=== PATIENT | male | born 1960 | race Caucasian/White ===

== ENCOUNTER 2023-04-18 08:01 | Inpatient (IN) | payer MEDICARE, SELFPAY ==
[2023-04-18] VITALS (15 sets, daily range): BP systolic 148–178; BP diastolic 86–110; PULSE 79–111; RESP 18–26; TEMP 36.3–36.5; O2SAT 93–97; BMI 30.4
--- NOTE | 2023-04-18 08:06 | DI.CT.S_ITS ---
PROCEDURE: CT STROKE INDICATIONS: right sided weakness hx of cva TECHNIQUE: Noncontrast 4.5 mm thick angled axial sections acquired from the foramen magnum to the vertex, with coronal reformats. For radiation dose reduction, the following was used: automated exposure control, adjustment of mA and/or kV according to patient size. COMPARISON: [facility], MR, MR BRAIN WITHOUT CONTRAST, 04/03/2020, 7:48. [facility], CT, CT HEAD WITHOUT CONTRAST, 04/02/2020, 15:24. [facility], CT, CT ANGIO HEAD AND NECK, 04/18/2023, 7:55. FINDINGS: Image quality: Excellent. CSF spaces: Basal cisterns are patent. No extra-axial fluid collections. Ventricles are normal in size and shape. Brain: No midline shift. No intracranial masses or hemorrhage. Sheikh-white matter interface is normal. Ill-defined low-attenuation within the karina corresponding to area of previous infarction. Skull and face: Calvarium and visualized facial bones are intact, without suspicious lesions. Sinuses: Visualized sinuses and mastoids are clear. IMPRESSION: 1. No acute intracranial process. The above findings were discussed with Dr. Angela Blake on 04/18/2023 at 8:19 a.m. This study fulfills neurological imaging criteria for inclusion or exclusion of acute stroke therapies based on available published neurological imaging guidelines. Dictated by: Yeny Horner M.D. on 04/18/2023 at 8:19 Approved by: Yeny Horner M.D. on 04/18/2023 at 8:22
--- NOTE | 2023-04-18 08:06 | DI.CT.S_ITS ---
PROCEDURE: CT ANGIO HEAD AND NECK INDICATIONS: stroke right side weakness TECHNIQUE: After the administration of intravenous contrast, 1 mm thick sections acquired from the aortic arch through the [place] of [place]. 3-dimensional rjlqgvx-tkhwrlaao-diwqcyghmx (MIP) and/or volume rendering reformats were acquired of the central intracranial vasculature and neck separately. For radiation dose reduction, the following was used: automated exposure control, adjustment of mA and/or kV according to patient size. COMPARISON: [facility], CT, CT STROKE, 04/18/2023, 7:55. [facility], MR, MR BRAIN WITHOUT CONTRAST, 04/03/2020, 7:48. [facility], CT, CT ANGIO HEAD AND NECK, 04/02/2020, 22:06. [facility], CT, CT HEAD WITHOUT CONTRAST, 04/02/2020, 15:24. CT, CT ANGIO HEAD AND NECK, 12/22/2018, 13:26. MR, MR BRAIN WITHOUT CONTRAST, 12/22/2018, 11:34. [facility], CT, CT HEAD WITHOUT CONTRAST, 12/22/2018, 10:53. FINDINGS: Image quality: Diagnostic. BRAIN: Please see separately dictated CT brain report. HEAD CT ANGIOGRAPHY: Anterior circulation: Intracranial internal carotid arteries are normal in size and flow. The flow within the paired anterior cerebral arteries is normal and symmetric. The flow within the middle cerebral arteries is normal and symmetric. The anterior communicating artery is seen. No aneurysms are seen. Posterior circulation: Mild left vertebral artery dominance. Visualized portions of the vertebral arteries demonstrate normal caliber, and join to form a normal appearing basilar artery. Flow within the posterior cerebral arteries is normal and symmetric. No aneurysms are seen. NECK CT ANGIOGRAPHY: Carotid system: The great vessels demonstrate bovine arch consistent with congenital variation. The origins of the common carotid arteries appear patent. The common carotid arteries demonstrate normal caliber and courses. The bifurcation regions are both widely patent. The internal carotid arteries demonstrate calcification at the origins with less than 50% stenosis, unchanged. Posterior circulation: The origins of the vertebral arteries both appear widely patent. The more superior extracranial portions of both vertebral arteries also demonstrate normal courses and calibers. They join to form a normal appearing basilar artery. Soft tissues: Visualized neck soft tissues demonstrate no suspicious abnormalities. Bones: No suspicious bony lesions. Visualized cervical spine appears normally aligned. IMPRESSION: See separately dictated CT brain report of 04/18/2023. No areas of hemodynamically significant stenosis, vascular occlusion or aneurysmal dilation within the anterior circulation. No areas of hemodynamically significant stenosis, vascular occlusion or aneurysmal dilation within the posterior circulation. No areas of hemodynamically significant stenosis, vascular occlusion or aneurysmal dilation within the neck vasculature. Any quantitative measurements of stenosis were performed using NASCET criteria. Dictated by: Yeny Horner M.D. on 04/18/2023 at 8:26 Approved by: Yeny Horner M.D. on 04/18/2023 at 8:29
--- NOTE | 2023-04-18 08:19 | ED_ITS ---
HPI - Neuro Symptoms/Deficit General Chief Complaint: Neuro Symptoms/Deficit Stated Complaint: Stroke Time Seen by Provider: 04/18/23 08:06 History of Present Illness HPI Narrative: Patient is a 62-year-old male history of insulin-dependent diabetes, CVA in 2019 with right-sided weakness is improved presenting today as a code stroke. He actually reports that he had slurring of speech yesterday which was new for him, it wax and waned. He was up to 230 this morning watching movies and felt okay. did not notice significant difference yesterday. He got up to use the restroom when he did not feel well. He then sat on the couch and felt like falls of his legs were weak. He finally was able to get up and back but generally did not feel good. 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 Patient admits to being noncompliant with medication but does take insulin. Related Data Home Medications Medication Instructions Recorded Confirmed atorvastatin 40 mg tablet 40 mg PO DAILY 04/18/23 04/18/23 clopidogrel 75 mg tablet 75 mg PO DAILY 04/18/23 04/18/23 insulin glargine 100 unit/mL (3 25 unit SUBCUT BID 04/18/23 04/18/23 mL) subcutaneous pen (Lantus Solostar U-100 Insulin) losartan 50 mg tablet 50 mg PO DAILY 04/18/23 04/18/23 metoprolol succinate 50 mg 50 mg PO BID 04/18/23 04/18/23 tablet,extended release 24 hr Review of Systems Review of Systems ROS Unobtainable: All systems reviewed & are unremarkable except as noted in HPI and below Patient History Medical History (Updated 04/18/23 @ 16:57 by Thuan Vazquez DO) CVA (cerebral vascular accident) HLD (hyperlipidemia) HTN (hypertension) Type 2 diabetes mellitus Social History household members: spouse and children Smoking Status: Current every day smoker alcohol intake: never substance use type: does not use Exam Initial Vital Signs Initial Vital Signs: Vital Signs Temperature 97.7 F 04/18/23 08:07 Pulse Rate 86 04/18/23 08:07 Respiratory Rate 18 04/18/23 08:07 Blood Pressure 172/86 H 04/18/23 08:07 Pulse Oximetry 93 04/18/23 08:07 Oxygen Delivery Method Room Air 04/18/23 08:07 GENERAL: Or pleasant 62-year-old male and in no acute distress. HEENT: Head atraumatic,EOMI, pupils reactive, face symmetric, moist mucous membranes CARDIOVASCULAR: Regular rate and rhythm without murmurs, rubs or gallops. RESPIRATORY: Breath sounds equal bilaterally, no wheezes rales or rhonchi. ABDOMEN: Soft, nontender. Normoactive bowel sounds all 4 quadrants. No guarding or rebound. EXTREMITIES: Normal range of motion, no clubbing or edema. Neurovascularly intact NEUROLOGICAL: Alert and oriented x4.Normal gait and speech. Cranial nerves II through XII grossly intact. Good vvyxsp-ho-pwpg, good cmsh-vy-yttk, strength equal bilaterally, no mild dysarthria noted or aphasia, sensation in tact to soft touch bilaterally, no visual changes, no facial droop SKIN: Warm, dry, no laceration, no petechiae, no rashes or lesions. Scores NIH Stroke Scale Level of Conciousness: Alert, keenly responsive Ask month/age: Answers both questions correctly. Open/close eyes, close hand: Performs both tasks correctly Best gaze horizontal: Normal Visual cyr: No visual loss Facial palsy: Normal symetrical movement Left arm drift: No drift for full 10 sec Right arm drift: No drift for full 10 sec Left leg drift: No drift for full 5 sec Right leg drift: No drift for full 5 sec Limb ataxia: Absent Sensory on face/arms/legs: Normal, no sensory loss Best language: No aphasia, normal Dysarthria: Mild to mod,some slurring Extinction or inattention: No abnormality Total NIH Stroke scale score: 1 Course Orders Ordered: ED Orders 04/18/23 11:11 Urinalysis and Microscopic Stat Acetaminophen (Acetaminophen 325 Mg Tablet) 650 mg PO Q6H PRN PRN Reason: Fever/Mild Pain (1-3) Aspirin (Aspirin Ec 81 Mg Tablet) 81 mg PO DAILY [facility] Atorvastatin Calcium (Atorvastatin 20 Mg Tablet) 40 mg PO DAILY [facility] Clopidogrel Bisulfate (Clopidogrel 75 Mg Tablet) 75 mg PO DAILY [facility] Enoxaparin Sodium (Enoxaparin 40 Mg/0.4 Ml Syringe) 40 mg SUBCUT DAILY [facility] Insulin Glargine (Insulin Glargine 100 Unit/Ml 3ml Pen) 25 unit SUBCUT BID [facility] Insulin Human Lispro (Insulin Lispro 100 Unit/Ml 3ml Vial) 4 unit SUBCUT AC [facility] Last Admin: 04/18/23 17:30 Dose: 4 unit Documented By: ARIEL Co-signed By: LINO Insulin Human Lispro (Insulin Lispro 100 Unit/Ml 3ml Vial) 0 unit SUBCUT [facility]; Protocol Losartan Potassium (Losartan 50 Mg Tablet) 50 mg PO DAILY [facility] Metoprolol Succinate (Metoprolol Er 50 Mg Tablet) 50 mg PO BID [facility] Naloxone HCl (Naloxone 0.4 Mg/Ml Vial) 0.2 mg IV Q2MIN PRN PRN Reason: Opiate Reversal Ondansetron HCl (Ondansetron 4 Mg/2 Ml Inj) 4 mg IV Q8HR PRN PRN Reason: Nausea And Vomiting Discontinued Medications Aspirin (Aspirin 81 Mg Chew Tab) 324 mg PO NOW ONE Stop: 04/18/23 08:25 Last Admin: 04/18/23 08:26 Dose: 324 mg Documented By: BRINA Clopidogrel Bisulfate (Clopidogrel 75 Mg Tablet) 300 mg PO NOW ONE Stop: 04/18/23 16:47 Last Admin: 04/18/23 17:00 Dose: 300 mg Documented By: ARIEL Dextrose (Dextrose 50 % In Water 25 Gm/50 Ml Syringe) 25 gm IV PRN PRN PRN Reason: Hypoglycemia Insulin Glargine (Insulin Glargine 100 Unit/Ml 3ml Pen) 15 unit SUBCUT 2100 [facility] Insulin Human Lispro (Insulin Lispro 100 Unit/Ml 3ml Vial) 0 unit SUBCUT [facility]; Protocol Insulin Human Lispro (Insulin Lispro 100 Unit/Ml 3ml Vial) 1 unit SUBCUT AC [facility] Last Admin: 04/18/23 17:00 Dose: Not Given Documented By: Admin: 04/18/23 13:08 Dose: Not Given Documented By: ARIEL MDM - Neuro Symptoms/Deficit Lab Data 04/18/23 08:00 04/18/23 08:00 Labs: Lab Results 04/18/23 04/18/23 04/18/23 Range/Units 08:00 08:00 08:00 WBC 10.0 (4.5-11.0) X10^3/uL RBC 5.25 (4.5-5.9) X10^6/uL Hgb 15.2 (13.5-17.5) g/dL Hct 45.1 (41-53) % MCV 86.0 (80-100) fL MCH 29.0 (26-34) PG MCHC 33.7 (30-36) % RDW 14.6 (11.6-14.8) % Plt Count 232 (150-400) X10^3/uL Neut % (Auto) 50.4 (50-75) % Lymph % (Auto) 37.3 (25-40) % [place] % (Auto) 11.2 (3-14) % Eos % (Auto) 0.6 L (2-4) % Baso % (Auto) 0.5 (0-2) % Neut # (Auto) 5000 (5675-2024) /uL Lymph # (Auto) 3700 (2205-5736) /uL [place] # (Auto) 1100 H (0-900) /uL Eos # (Auto) 100 (0-450) /uL Baso # (Auto) 0 (0-100) /uL PT 10.3 (10.1-12.7) SECONDS INR 0.9 (0.9-1.3) APTT 28 (26-36) SECONDS Sodium 139 (137-145) mmol/L Potassium 3.6 (3.4-5.1) mmol/L Chloride 101 (98-107) mmol/L Carbon Dioxide 29 (22-32) mmol/L BUN 12 (9-20) mg/dL Creatinine 0.91 (0.66-1.25) mg/dL Estimated GFR > 60 (>60) mL/min BUN/Creatinine Ratio 13.2 (6-22) Glucose 107 (80-110) mg/dL Calcium 9.4 (8.4-10.2) mg/dL Total Bilirubin 0.6 (0.2-1.3) mg/dL AST 25 (17-59) IU/L ALT 18 (<50) IU/L Alkaline Phosphatase 63 (38-126) U/L Total Creatine Kinase 154 (55-170) U/L Troponin I < 0.012 (0.01-0.034) ng/mL Total Protein 7.3 (6.3-8.2) g/dL Albumin 3.9 (3.5-5.0) g/dL Globulin 3.4 (1.7-4.1) g/dL Albumin/Globulin Ratio 1.1 (1.0-2.8) Urine RBC (0-5/HPF) Urine WBC (0-5/HPF) Ur Squamous Epith Cells (0-5/HPF) Urine Bacteria (None) U Opiates 300ng/mL cut (Negative) Ur Oxycodone Screen (Negative) Urine Methadone Screen (Negative) Ur Barbiturates Screen (Negative) U Tricyclic Antidepress (Negative) Ur Phencyclidine Scrn (Negative) Ur Amphetamines Screen (Negative) U Methamphetamines Scrn (Negative) Ur MDMA Scrn (Ecstasy) (Negative) U Benzodiazepines Scrn (Negative) Urine Cocaine Screen (Negative) U Marijuana (THC) Screen (Negative) Ethyl Alcohol < 10 ( - 10) mg/dL SARS-CoV-2 (PCR) (Negative) 04/18/23 04/18/23 04/18/23 Range/Units 08:07 08:50 09:30 WBC (4.5-11.0) X10^3/uL RBC (4.5-5.9) X10^6/uL Hgb (13.5-17.5) g/dL Hct (41-53) % MCV (80-100) fL MCH (26-34) PG MCHC (30-36) % RDW (11.6-14.8) % Plt Count (150-400) X10^3/uL Neut % (Auto) (50-75) % Lymph % (Auto) (25-40) % [place] % (Auto) (3-14) % Eos % (Auto) (2-4) % Baso % (Auto) (0-2) % Neut # (Auto) (6906-8558) /uL Lymph # (Auto) (8219-5285) /uL [place] # (Auto) (0-900) /uL Eos # (Auto) (0-450) /uL Baso # (Auto) (0-100) /uL PT (10.1-12.7) SECONDS INR (0.9-1.3) APTT (26-36) SECONDS Sodium (137-145) mmol/L Potassium (3.4-5.1) mmol/L Chloride (98-107) mmol/L Carbon Dioxide (22-32) mmol/L BUN (9-20) mg/dL Creatinine (0.66-1.25) mg/dL Estimated GFR (>60) mL/min BUN/Creatinine Ratio (6-22) Glucose (80-110) mg/dL Calcium (8.4-10.2) mg/dL Total Bilirubin (0.2-1.3) mg/dL AST (17-59) IU/L ALT (<50) IU/L Alkaline Phosphatase (38-126) U/L Total Creatine Kinase (55-170) U/L Troponin I (0.01-0.034) ng/mL Total Protein (6.3-8.2) g/dL Albumin (3.5-5.0) g/dL Globulin (1.7-4.1) g/dL Albumin/Globulin Ratio (1.0-2.8) Urine RBC None seen (0-5/HPF) Urine WBC None seen (0-5/HPF) Ur Squamous Epith Cells None seen (0-5/HPF) Urine Bacteria None seen (None) U Opiates 300ng/mL cut Negative (Negative) Ur Oxycodone Screen Negative (Negative) Urine Methadone Screen Negative (Negative) Ur Barbiturates Screen Negative (Negative) U Tricyclic Antidepress Negative (Negative) Ur Phencyclidine Scrn Negative (Negative) Ur Amphetamines Screen Negative (Negative) U Methamphetamines Scrn Negative (Negative) Ur MDMA Scrn (Ecstasy) Negative (Negative) U Benzodiazepines Scrn Negative (Negative) Urine Cocaine Screen Negative (Negative) U Marijuana (THC) Screen Negative (Negative) Ethyl Alcohol ( - 10) mg/dL SARS-CoV-2 (PCR) Negative (Negative) Point of Care Testing Glucose POC 102 Urine Dip Bedside Urine Glucose Negative Bedside Urine Bilirubin - Negative Bedside Urine Ketone - Negative Urine Specific [place] 1.000 Bedside Urine Occult Blood - Negative Bedside Urine pH 6.5 Bedside Urine Protein + 30 Bedside Urine Urobilinogen +/- 1mg Bedside Urine Nitrite - Negative Bedside Urine Leukocytes - Negative Esterase Imaging Data CT scan - head: Radiologist's Impression: PROCEDURE:? CT STROKE ? INDICATIONS:? right sided weakness hx of cva ? TECHNIQUE:? Noncontrast 4.5 mm thick angled axial sections acquired from the foramen magnum to the vertex, with coronal reformats.? For radiation dose reduction, the following was used:? automated exposure control, adjustment of mA and/or kV according to patient size.? ? COMPARISON:? [facility], MR, MR BRAIN WITHOUT CONTRAST, 04/03/2020, 7:48.? [facility], CT, CT HEAD WITHOUT CONTRAST, 04/02/2020, 15:24.? [facility], CT, CT ANGIO HEAD AND NECK, 04/18/2023, 7:55. ? FINDINGS:? Image quality:? Excellent.? ? CSF spaces:? Basal cisterns are patent.? No extra-axial fluid collections.? Ventricles are normal in size and shape.? ? Brain:? No midline shift.? No intracranial masses or hemorrhage.? Sheikh-white matter interface is normal.? Ill-defined low-attenuation within the karina corresponding to area of previous infarction. ? Skull and face:? Calvarium and visualized facial bones are intact, without suspicious lesions.? ? Sinuses:? Visualized sinuses and mastoids are clear.? ? IMPRESSION:? ? 1. No acute intracranial process. ? The above findings were discussed with Dr. Angela Blake on 04/18/2023 at 8:19 a.m. ? This study fulfills neurological imaging criteria for inclusion or exclusion of acute stroke therapies based on available published neurological imaging guidelines.? ? ? Dictated by: Yeny Horner M.D. on 04/18/2023 at 8:1 CTA - brain/neck: Radiologist's Impression: PROCEDURE:? CT ANGIO HEAD AND NECK ? INDICATIONS:? stroke right side weakness ? TECHNIQUE:? After the administration of intravenous contrast, 1 mm thick sections acquired from the aortic arch through the [place] of [place].? 3-dimensional lvymiih-hoybvoyde-trtshrguex (MIP) and/or volume rendering reformats were acquired of the central intracranial vasculature and neck separately. For radiation dose reduction, the following was used:? automated exposure control, adjustment of mA and/or kV according to patient size.? ? COMPARISON:? [facility], CT, CT STROKE, 04/18/2023, 7:55.? [facility], MR, MR BRAIN WITHOUT CONTRAST, 04/03/2020, 7:48.? [facility], CT, CT ANGIO HEAD AND NECK, 04/02/2020, 22:06.? [facility], CT, CT HEAD WITHOUT CONTRAST, 04/02/2020, 15:24.? CT, CT ANGIO HEAD AND NECK, 12/22/2018, 13:26.? MR, MR BRAIN WITHOUT CONTRAST, 12/22/2018, 11:34.? [facility], CT, CT HEAD WITHOUT CONTRAST, 12/22/2018, 10:53. ? FINDINGS:? Image quality:? Diagnostic.? ? BRAIN:? Please see separately dictated CT brain report. ? HEAD CT ANGIOGRAPHY:? Anterior circulation:? Intracranial internal carotid arteries are normal in size and flow.? The flow within the paired anterior cerebral arteries is normal and symmetric.? The flow within the middle cerebral arteries is normal and symmetric.? The anterior communicating artery is seen.? No aneurysms are seen.? ? Posterior circulation:? Mild left vertebral artery dominance.? Visualized portions of the vertebral arteries demonstrate normal caliber, and join to form a normal appearing basilar artery.? Flow within the posterior cerebral arteries is normal and symmetric.? No aneurysms are seen.? ? NECK CT ANGIOGRAPHY:? Carotid system:? The great vessels demonstrate bovine arch consistent with congenital variation.? The origins of the common carotid arteries appear patent.? The common carotid arteries demonstrate normal caliber and courses.? The bifurcation regions are both widely patent.? The internal carotid arteries demonstrate calcification at the origins with less than 50% stenosis, unchanged. ? Posterior circulation:? The origins of the vertebral arteries both appear widely patent.? The more superior extracranial portions of both vertebral arteries also demonstrate normal courses and calibers.? They join to form a normal appearing basilar artery.? ? Soft tissues:? Visualized neck soft tissues demonstrate no suspicious abnormalities.? ? Bones:? No suspicious bony lesions.? Visualized cervical spine appears normally aligned.? IMPRESSION:? ? See separately dictated CT brain report of 04/18/2023. ? No areas of hemodynamically significant stenosis, vascular occlusion or aneurysmal dilation within the anterior circulation. ? No areas of hemodynamically significant stenosis, vascular occlusion or a neurysmal dilation within the posterior circulation. ? No areas of hemodynamically significant stenosis, vascular occlusion or aneurysmal dilation within the neck vasculature. ? Any quantitative measurements of stenosis were performed using NASCET criteria.? ? ? Dictated by: Yeny Horner M.D. on 04/18/2023 at 8:26 ECG Data Interpretation: Sinus rhythm rate 88 AK interval 152 QRS 88 QTC 433 Q-wave noted in lead 3 and AVF no priors to compare no ST changes MDM Narrative Medical decision making narrative: Patient 62-year-old male history of insulin-dependent diabetes hypertension noncompliant with medication presenting today as a code stroke. Although after further evaluation patient has had slurring speech since yesterday he has a low NIH stroke scale of 1 symptoms seem to be improving not a tPA candidate based on time greater than 4 hours and improving symptoms. Sarah Perry called about head CT which is negative for intracranial hemorrhage CT angio did not show any significant blockage. He continues to have slurring of speech in the ED Blood work has been reviewed and overall reassuring Dr. Vazquez accepts patient #[id number]: Stroke & Stroke Rehabilitation: Thrombolytic Therapy [] The patient, who arrived at the hospital within 2 hours of time last known well, was diagnosed with subacute or acute ischemic stroke. IV t-PA was initiated within 3 hours of time last known well. [SATISFIES MIPS PERFORMANCE] [] The patient was diagnosed with subacute or acute ischemic stroke. IV t-PA was not initiated within 3 hours of last known well due to [select]: [MIPS PERFORMANCE EXCEPTION/EXCLUSION] X Patient arrived more than 2 hours after last known well time, or the time last known well is unknown [] Patient has a medical contra-indication or reason for not administering [] (ex. neurologist does not believe t-PA is appropriate, active internal bleeding, serious head trauma, acute current or history of intracranial hemorrhage, uncontrollable hypertension, seizure at onset of stroke, CVA in last 3 months, Intracranial or intraspinal surgery in last 3 months, bleeding disorder, thrombocytopenia < 100,000, early radiographic ischemic changes on head CT, INR > 1.7, intracranial neoplasm, AVM, or aneurysm, patient in stroke trial, patient admitted for elective carotid intervention) []Patient or family declined IV t-PA [] The patient, who arrived at the hospital within 2 hours of time last known well, was diagnosed with subacute or acute ischemic stroke. IV t-PA was not initiated within 3 hours of time last known well. [DOES NOT SATISFY MIPS PERFORMANCE] Discharge Plan Departure Patient Disposition: Admitted as Observation Clinical Impression: Cerebrovascular accident Admit Date/Time: 04/18/23 10:45 Admit Provider: Thuan Vazquez
[2023-04-18 08:26] LABS: Add Manual Diff / Slide Review NO; Basophils Absolute Auto 0 /uL (0-100); Basophils Percent Auto 0.5 % (0-2); Eosinophils Absolute Auto 100 /uL (0-450); Eosinophils Percent Auto 0.6 % (2-4); Hematocrit 45.1 % (41-53); Hemoglobin 15.2 g/dL (13.5-17.5); Lymphocytes Absolute Auto 3700 /uL (1100-4500); Lymphocytes Percent Auto 37.3 % (25-40); Mean Corpuscular HGB Conc 33.7 % (30-36); Monocytes Absolute Auto 1100 /uL (0-900); Monocytes Percent Auto 11.2 % (3-14); Neutrophils Absolute Auto 5000 /uL (1500-7000); Neutrophils Percent Auto 50.4 % (50-75); Platelet Count 232 X10^3/uL (150-400); Red Blood Cell Count 5.25 X10^6/uL (4.5-5.9); Red Cell Distribution Width 14.6 % (11.6-14.8)
[2023-04-18] MEDS: ASPIRIN 81 MG CHEW TAB 324 MG PO (08:26)
[2023-04-18 08:27] LABS: INR 0.9 (0.9-1.3); Prothrombin Time 10.3 SECONDS (10.1-12.7)
[2023-04-18 08:31] LABS: PTT Partial Thromboplastin Tim 28 SECONDS (26-36)
[2023-04-18 08:34] LABS: Alanine Aminotransferase 18 IU/L (<50); Albumin 3.9 g/dL (3.5-5.0); Albumin Globulin Ratio 1.1 (1.0-2.8); Alkaline Phosphatase 63 U/L (38-126); Aspartate Aminotransferase 25 IU/L (17-59); BUN Creatinine Ratio 13.2 (6-22); Bilirubin Total 0.6 mg/dL (0.2-1.3); Blood Urea Nitrogen 12 mg/dL (9-20); Calcium 9.4 mg/dL (8.4-10.2); Carbon Dioxide 29 mmol/L (22-32); Chloride 101 mmol/L (98-107); Creatine Kinase 154 U/L (55-170); Estimated Glomerular Filt Rate > 60 mL/min (>60); Ethanol (ETOH) < 10 mg/dL; Globulin 3.4 g/dL (1.7-4.1); Glucose 107 mg/dL (80-110); HEMOLYSIS < 15 (0-50); Potassium 3.6 mmol/L (3.4-5.1); Sodium 139 mmol/L (137-145); Total Protein 7.3 g/dL (6.3-8.2)
[2023-04-18 08:45] LABS: Troponin I < 0.012 ng/mL (0.01-0.034)
[2023-04-18 09:23] LABS: COVID19 -Nasal RAPID Negative (Negative)
[2023-04-18 09:36] LABS: UR Morphine/Opiate cutoff 300 Negative (Negative); Ur Creatinine Normal (Normal); Ur Specific Gravity Normal (Normal); Urine Amphetamines Negative (Negative); Urine Barbiturates Negative (Negative); Urine Benzodiazepines Negative (Negative); Urine Cocaine Negative (Negative); Urine MDMA Negative (Negative); Urine Methadone Negative (Negative); Urine Methamphetamines Negative (Negative); Urine Oxycodone Negative (Negative); Urine Phencyclidine Negative (Negative); Urine Tetrahydrocannabinol Negative (Negative); Urine Tricyclic Antidepressant Negative (Negative); Urine pH Normal (Normal)
[2023-04-18 09:54] LABS: Bacteria Urine None Seen; RBC Urine None Seen (0-5/HPF); Squamous Epithelial Cell Urine None Seen (0-5/HPF); WBC Urine None Seen (0-5/HPF)
[2023-04-18 11:20] LABS: Appearance Urine UA CLEAR; Bilirubin Urine UA NEGATIVE (NEGATIVE); Color Urine UA YELLOW; Glucose Urine UA NEGATIVE (Negative); Ketones Urine UA NEGATIVE (NEGATIVE); Leukocyte Esterase Urine UA NEGATIVE (NEGATIVE); Nitrite Urine UA NEGATIVE (Negative); Occult Blood Urine UA TRACE-INTACT (Negative); Protein Urine UA 2+ (Negative); pH Urine UA 5.5 (4.5-8.0)
--- NOTE | 2023-04-18 11:22 | P.HP_ITS ---
History of Present Illness History of Present Illness Date Patient Seen: 04/18/23 Time Patient Seen: 11:22 Chief complaint: Stroke Narrative: This is a 62 year old male with PMH of HTN, prior CVA (at [facility] in 2019), diabetes who presented with complaint of slurred speech. He reports his symptoms started yesterday evening but came and went. He was up watching television but noticed around 3 am it was a bit worse when he got up to use the restroom. He felt weak and off, and had back down when his legs felt weak. He was able to get back to sleep, and woke this morning with slurred speech and some R hand weakness. He denies numbness or tingling, vision changes. He has felt congested recently but no fever, sore throat, or sick contacts. He is supposed to be on clopidogrel from his prior stroke but has not been taking it recently. In the emergency room he was mildly hypertensive but the remainder of his vital signs were unremarkable. Laboratory evaluation was further unremarkable including basic chemistries, troponin, and urinalysis. Urine drug screen was negative. COVID-19 testing was negative. Initial head CT was negative for hemorrhage. CT angiogram of his head and neck showed no clinically significant stenosis. He was admitted for further management of presumed stroke. Given unclear last known normal, he was ineligible for tPA therapy. [facility] Medical History (Updated 04/18/23 @ 16:57 by Thuan Vazquez DO) CVA (cerebral vascular accident) HLD (hyperlipidemia) HTN (hypertension) Type 2 diabetes mellitus Social History household members: spouse and children Smoking Status: Current every day smoker alcohol intake: never substance use type: does not use Meds Home Medications and Allergies Home Medications Medication Instructions Recorded Confirmed Type atorvastatin 40 mg tablet 40 mg PO DAILY 04/18/23 04/18/23 History clopidogrel 75 mg tablet 75 mg PO DAILY 04/18/23 04/18/23 History insulin glargine 100 unit/mL (3 25 unit SUBCUT BID 04/18/23 04/18/23 History mL) subcutaneous pen (Lantus Solostar U-100 Insulin) losartan 50 mg tablet 50 mg PO DAILY 04/18/23 04/18/23 History metoprolol succinate 50 mg 50 mg PO BID 04/18/23 04/18/23 History tablet,extended release 24 hr Review of Systems Review of Systems Narrative: All other systems reviewed with the patient and are negative unless otherwise stated. Exam Vital Signs (past 8 hours): - 04/18/23 08:07 04/18/23 08:45 04/18/23 08:46 Temperature 97.7 F Pulse Rate 86 86 87 Respiratory Rate 18 24 19 Blood Pressure 172/86 H Pulse Oximetry 93 93 93 Oxygen Delivery Method Room Air 04/18/23 08:46 04/18/23 09:00 04/18/23 09:30 Temperature Pulse Rate 84 83 Respiratory Rate 19 19 Blood Pressure 155/86 H Pulse Oximetry 94 94 Oxygen Delivery Method 04/18/23 10:00 04/18/23 10:30 04/18/23 11:00 Temperature Pulse Rate 80 80 79 Respiratory Rate 24 21 26 H Blood Pressure Pulse Oximetry 94 95 95 Oxygen Delivery Method 04/18/23 11:09 04/18/23 11:09 Temperature Pulse Rate 79 Respiratory Rate 23 Blood Pressure 154/92 H Pulse Oximetry 95 Oxygen Delivery Method Oxygen Delivery Method Room Air Narrative Exam Narrative: General:? Patient is well developed and well nourished, in no distress at this time. HEENT:? Normocephalic, atraumatic, extraocular muscles intact, oral pharynx is clear and mucous membranes are moist. Neck: supple and symmetric, trachea is midline, no cervical adenopathy. Negative for JVD Chest:? Normal AP diameter and contour without kyphoscoliosis, no tachypnea, equal chest rise bilaterally. Lungs:? CTA b/l no wheezing rhonchi or rales. Cardio:?RRR no m/r/g. Abdomen: S NT ND. Musculoskeletal:? Muscle strength and tone are equal within normal limits, no deformity. Extremities: No edema or joint effusions. No cyanosis or clubbing. Skin:? Pale,? Warm to touch,dry and intact without rashes, ulcerations or petechiae.? Neuro:? Alert and orientated x3,?slight R facial asymmetry with smiling, slurred speech compared to baseline. R hand weakness compared to L (he is R handed) but +5/5 strength. Psych:? Patient has a well-kept appearance, appropriate affect, mental status attitude thought context and judgment are appropriate for age. Objective ECG Impression: NSR with no evidence for acute ischemia. As interpreted by me. Labs 04/18/23 08:00 04/18/23 08:00 Labs: Laboratory Results - last 24 hr 04/18/23 04/18/23 04/18/23 08:00 08:00 08:00 WBC 10.0 RBC 5.25 Hgb 15.2 Hct 45.1 MCV 86.0 MCH 29.0 MCHC 33.7 RDW 14.6 Plt Count 232 Neut % (Auto) 50.4 Lymph % (Auto) 37.3 [place] % (Auto) 11.2 Eos % (Auto) 0.6 L Baso % (Auto) 0.5 Neut # (Auto) 5000 Lymph # (Auto) 3700 [place] # (Auto) 1100 H Eos # (Auto) 100 Baso # (Auto) 0 PT 10.3 INR 0.9 APTT 28 Sodium 139 Potassium 3.6 Chloride 101 Carbon Dioxide 29 BUN 12 Creatinine 0.91 Estimated GFR > 60 BUN/Creatinine Ratio 13.2 Glucose 107 Calcium 9.4 Total Bilirubin 0.6 AST 25 ALT 18 Alkaline Phosphatase 63 Total Creatine Kinase 154 Troponin I < 0.012 Total Protein 7.3 Albumin 3.9 Globulin 3.4 Albumin/Globulin Ratio 1.1 Urine RBC Urine WBC Ur Squamous Epith Cells Urine Bacteria U Opiates 300ng/mL cut Ur Oxycodone Screen Urine Methadone Screen Ur Barbiturates Screen U Tricyclic Antidepress Ur Phencyclidine Scrn Ur Amphetamines Screen U Methamphetamines Scrn Ur MDMA Scrn (Ecstasy) U Benzodiazepines Scrn Urine Cocaine Screen U Marijuana (THC) Screen Ethyl Alcohol < 10 SARS-CoV-2 (PCR) 04/18/23 04/18/23 04/18/23 08:07 08:50 09:30 WBC RBC Hgb Hct MCV MCH MCHC RDW Plt Count Neut % (Auto) Lymph % (Auto) [place] % (Auto) Eos % (Auto) Baso % (Auto) Neut # (Auto) Lymph # (Auto) [place] # (Auto) Eos # (Auto) Baso # (Auto) PT INR APTT Sodium Potassium Chloride Carbon Dioxide BUN Creatinine Estimated GFR BUN/Creatinine Ratio Glucose Calcium Total Bilirubin AST ALT Alkaline Phosphatase Total Creatine Kinase Troponin I Total Protein Albumin Globulin Albumin/Globulin Ratio Urine RBC None seen Urine WBC None seen Ur Squamous Epith Cells None seen Urine Bacteria None seen U Opiates 300ng/mL cut Negative Ur Oxycodone Screen Negative Urine Methadone Screen Negative Ur Barbiturates Screen Negative U Tricyclic Antidepress Negative Ur Phencyclidine Scrn Negative Ur Amphetamines Screen Negative U Methamphetamines Scrn Negative Ur MDMA Scrn (Ecstasy) Negative U Benzodiazepines Scrn Negative Urine Cocaine Screen Negative U Marijuana (THC) Screen Negative Ethyl Alcohol SARS-CoV-2 (PCR) Negative Assessment & Plan Assessment & Plan narrative: 1. CVA - presents with R sided hand weakness, slurred speech. NIH 3 on my assessment. - MRI for further evaluation of probable cva. - tele ordered to monitor for afib - TTE from 2019 at [facility] shows no PFO, normal EF, some mild diastolic dysfunction . No need to repeat given lack of cardiac symptoms. - eval with PT/OT/Speech - will order ASA and Plavix with NIH <5 on presentation. given asa 324 initially, give 300 mg plavix now. - initial permissive htn, with resumption of home medications this evening - continue home statin lipitor 40 mg, check TSH, lipid panel and A1c as well. 2. HTN - continue home losartan and metoprolol 3. DM2 - check A1c, diabetic diet, sliding scale ordered. - continue home 25 U BID lantus along with 4 U TID AC home short acting plus above sliding scale. 4. Obesity The patient is at much higher risk for medical and surgical complications because of their obesity. This increases the difficulty and complexity of medical and surgical interventions and increases the chances of poor outcomes such as morbidity and mortality. Code: Full, surrogate is patient's spouse DVT: Lovenox I have utilized all available immediate resources to obtain, update, or review the patient's current medications. Street was obtained via the patient's spouse, and discussion with the ER provider. I have reviewed the patient's presenting documentation, labs, and imaging personally and order the above follow-up studies. Discussed plan of care with the patient and his spouse. Dispo: admitted inpatient as his stay is expected to exceed two midnights. Scores NIHSS Level of Conciousness: Alert, keenly responsive Ask month/age: Answers both questions correctly. Open/close eyes, close hand: Performs both tasks correctly Best gaze horizontal: Normal Visual cyr: No visual loss Facial palsy: Minor paralysis, flattened nasolabial fold, asymmetry on smiling Left arm drift: No drift for full 10 sec Right arm drift: No drift for full 10 sec Left leg drift: No drift for full 5 sec Right leg drift: No drift for full 5 sec Limb ataxia: Absent Sensory on face/arms/legs: Normal, no sensory loss Best language: Mild to moderate, slurs some words Dysarthria: Mild to mod,some slurring Extinction or inattention: No abnormality Total NIH Stroke scale score: 3 Quality MIPS - Admit I confirm the patient?s Advance Care Plan is present, Code status is documented, Surrogate decision maker is in patient?s record [If Yes, STOP here]: Yes
[2023-04-18 11:31] LABS: Bacteria Urine None Seen; Culture Indicated Urine Cult Not Indicated; RBC Urine None Seen (0-5/HPF); Squamous Epithelial Cell Urine None Seen (0-5/HPF); WBC Urine 0-1/HPF (0-5/HPF)
--- NOTE | 2023-04-18 13:11 | DI.MRI.S_ITS ---
PROCEDURE: MR HEAD/BRAIN WO CON INDICATIONS: R facial droop, slurred speech poss CVA TECHNIQUE: Non-contrast axial T1 spin echo, axial T2 fast spin echo, sagittal and axial FLAIR, coronal T2 fast spin echo, axial gradient echo, axial diffusion and ADC through the brain. COMPARISON: [facility], CT, CT STROKE, 04/18/2023, 7:55. FINDINGS: Image quality: Excellent. CSF spaces: Ventricles appear symmetric in size and shape. Basal cisterns are patent. No extra-axial fluid collections. Brain: No intracranial bleeds or mass effects. There is cerebral volume loss for age. There are periventricular and deep white matter chronic small vessel ischemic changes. Diffusion-weighted images demonstrate a 5 mm focus of elevated signal intensity within the left inferior karina anteriorly. This lesion demonstrates moderate FLAIR signal elevation. No chronic ischemic insults. Normal intravascular flow voids are present. Skull and face: Calvarial bone marrow is normal in signal. Orbits are normal. Sinuses: Sinuses and mastoids are clear. IMPRESSION: 1. Mild volume loss and small vessel ischemic disease. 2. Subacute left pontine infarct. Dictated by: Avtar Romero M.D. on 04/18/2023 at 16:07 Approved by: Avtar Romero M.D. on 04/18/2023 at 16:08
--- NOTE | 2023-04-18 16:45 | PT.IIE ---
Medical History (Last Updated 04/18/23 @ 16:57 by Thuan Vazquez DO) CVA (cerebral vascular accident) HLD (hyperlipidemia) HTN (hypertension) Type 2 diabetes mellitus Physical Therapy Inpatient Evaluation/Re-Eval M1 PT/OT-IP Prior Functional Status Start: 04/18/23 17:49 Freq: NEEDED Status: Active Protocol: Document 04/18/23 17:49 AB (Rec: 04/18/23 18:11 AB [id number]) Medical Review Prior Functional Status Medical History Reviewed Yes Communication Pt is able to express all needs. Mobility and Gait Pt reports he does not use AD for household mobility, but uses 4WW to get the mail. Activities of Daily Living and IADL's IND with ADLs and IADLs Prior Functional Level (Other details) hx of CVA in 2019 which caused right sided weakness, hx of neuropathy and left foot drop (wears brace for foot drop) Social History Household Members spouse,children Living Arrangements House Number of Floors (Floors) One Floor Number of Stairs To Enter/Railing? 3 [place] with hand rail on right side Home Environment Standard Height Toilet,Tub/ Shower Home Equipment Front Wheel Walker,Four Wheel Walker,Quad Cane,Raised Toilet Seat Without Armrests,Grab Bars In Shower Additional Social History Comment Pt reports his and son can assist him / if needed. The pt reports he owns a FWW but has loaned it to a friend currently. M2 PT-IP Current Condition Start: 04/18/23 17:49 Freq: NEEDED Status: Active Protocol: Document 04/18/23 17:49 AB (Rec: 04/18/23 18:11 AB [id number]) Physical Therapy Current Condition Current Condition Evaluation Date 04/18/23 Treatment Diagnosis CVA; right sided weakness Onset Date 04/18/23 M3 PT-IP Subjective Start: 04/18/23 17:49 Freq: NEEDED Status: Active Protocol: Document 04/18/23 17:49 AB (Rec: 04/18/23 18:11 AB [id number]) Subjective Physical Therapy Visit Type Type Initial Evaluation Visit Start Time 16:45 Visit Stop Time 17:07 Total Visit Minutes 22 Notes Pt presents seated at EOB with at bedside, after handoff from GERIATRIC NURSE ASSISTANT. BP taken in sitting before beginning mobility: 167/103 mmHg. Physical Therapy Visit Comments Patient Comments Pt is agreeable to PT eval. He denies having any symptoms currently. Therapy Pain Assessment Pain When Pain Assessed At Rest Pain Present Pain Present Denied Pain M4 PT-IP Mobility and Gait Start: 04/18/23 17:49 Freq: NEEDED Status: Active Protocol: Document 04/18/23 17:49 AB (Rec: 04/18/23 18:11 AB [id number]) PT-Bed Mobility Assessment Rolling Type of Rolling Bilateral Level of Assist Minimal Assistance Supine to Sit Supine to Sit Standby Assistance Sit to Supine Sit to Supine Standby Assistance Scooting Scooting to Edge of Bed Standby Assistance Scooting Up and Down in Bed Standby Assistance PT-Transfer Assessment Sit to and From Stand Sit to and from Stand Standby Assistance,Use of Upper Extremities Equipment Transfer Assistive Device Gait Belt,Front Wheeled Walker Transfers Transfer Destination Bed Transfer Technique Stand Step Pivot Transfer Ability Level of Assist Standby Assistance Gait Assessment Gait Gait Assistance Required: Contact Guard Assist Distance (Feet) 130 Assistive Devices Assistive Device Gait Belt Gait Deviations General Gait Pattern Decreased Stride Length, Decreased Feet Clearance Factors Limiting Gait Function Factors Limiting Gait Function Decreased Activity Tolerance, Decreased Sensation,Poor Balance,Poor Safety Awareness Comments Gait Comments Pt shows increased instability when ambulated, though he is able to self correct. PT recommends use of FWW due to these deficits. Stair Climbing Assessment Evaluation Level of Assist On Stairs Standby Assistance Devices Stair Climbing Assistive Devices Left Railing,Right Railing Technique/Endurance Stair Climbing Direction Ascend and Descend Stair Climbing Technique Step to Step Number of Steps Climbed 3 Query Text: Stair Climbing Set # Repetitions (reps) 1 PT-Balance Assessment Sitting Balance and Reactions Static Sitting Balance Ability Normal Dynamic Sitting Balance Ability Good Standing Balance and Reactions Static Standing Balance Ability Fair Dynamic Standing Balance Ability Poor M5 PT-IP Objective Assessments Start: 04/18/23 17:49 Freq: NEEDED Status: Active Protocol: Document 04/18/23 17:49 AB (Rec: 04/18/23 18:11 AB [id number]) Orientation Orientation/Cognition Level of Alertness Alert Orientation Name,Age,Birthday,Month,Date, Year,Day of Week,Place, Situation Language Function Ability No Deficits Noted Safety Awareness Understands Safety Issues Memory Description No Deficits Noted Comments Pt understand safety issues but reports not being receptive to recommendations in the past, and shows impulsivity when perform functional mobility tasks. Gross Range of Motion Upper Extremity ROM Assessment Within Functional Limits Lower Extremity ROM Assessment Within Functional Limits Strength Upper Extremity Strength Assessment Within Functional Limits Lower Extremity Strength Assessment Bilaterally Impaired Sensation Assessment Sensation Gross Sensation Right LE Impaired,Left LE Impaired Comments Sensation Comments Pt reprots neuropathy in BLE. M6 PT-IP Treatment Start: 04/18/23 17:49 Freq: NEEDED Status: Active Protocol: Document 04/18/23 17:49 AB (Rec: 04/18/23 18:11 AB [id number]) Physical Therapy Treatment Education Education Provided Precautions,Safety Brace Education Patient Other Treatments Other Treatment Performed At end of session, the pt returned to sitting at EOB to eat dinner with at bedside, and was educated on use of call light to return to bed. All needs were met and call light is within reach. M7 PT-IP Assessment and Plan Start: 04/18/23 17:49 Freq: NEEDED Status: Active Protocol: Document 04/18/23 17:49 AB (Rec: 04/18/23 18:11 AB [id number]) PT Summary Assessment and Plan Potential Rehabilitation Potential Good Status of Condition at Evaluation Stable Summary Impairments Strength,Balance,Coordination, Sensation,Bed Mobility, Transfers,Gait,Activity Tolerance Assessment Summary Kenneth Denson is a 62 year old male who was admitted after having suffered subacute left pontine infarct (CVA), which has caused right sided weakness and slurred speech. The pt currently presents with balance deficits and right sided weakness which are affecting his ability to perform functional mobility independently and safely. He currently requires SBA to [place] to perform bed mobility, requires SBA for STS, transfers and stairs, and is CGA for ambulation due to his deficits. While the pt was able to ambulate without AD, he demonstrates significant imbalance and a few instances of mild LOB which the pt was able to self correct. Therefore, FWW is recommended for transfers and ambulation at this time. The pt also shows impulsivity when performing functional mobility tasks, requiring verbal cues to slow down. Based on his current level of function, PT recommends discharge to home with assistance and outpatient PT to help improve these deficits in order to reduce his fall risk and help the pt return to his highest level of function. Goals Bed Mobility Goal Independent Transfer Goal Independent Gait Goal Independent,Cane,Front Wheel Walker Gait Distance 200 Other Goals Pt to be able to complete transfers and ambulation with LRAD or no AD independently to show improved balance in order to return home safely. Pt to be able to ascend/ descend 3 steps with 1 hand rail independently to show improved strength to return home safely. Days to Meet Goals 10 Frequency of Treatment Frequency Of Treatment Once a Day Treatment Plan Physical Therapy Treatment Plan Bed Mobility Training,Transfer Training,Gait Training, Therapeutic Exercise,Balance Retraining,Post Op Education, Discharge Planning,Hot or Cold Pack,Neuromuscular Re-ed, Coordination Retraining,Manual Therapy Other Recommendations and Next Treatment Perform other functional Focus assessments and coordination tests as indicated. Recommendations To Nursing Amount of Assist Needed Standby Assistance Discharge Recommendations PT Discharge Recommendations Home with Assistance, Outpatient PT Other Discharge Recommendations Outpatient PT is recommended to further improve the pt's deficits. Equipment Needed for Home Before FWW Discharge Transportation Needs at Discharge Private Vehicle,Wheelchair/ Cabulance
[2023-04-18] MEDS: CLOPIDOGREL 75 MG TABLET 300 MG PO (17:00)
[2023-04-18] MEDS: INSULIN LISPRO 100 UNIT/ML 3ML VIAL SUBCUT (17:30)
--- NOTE | 2023-04-18 17:32 | ST.IPCSEOM ---
Visit Care Team Role Provider Type Thuan Euceda MD Primary Care Provider Non-Staff Specialty: Family Practice Address: [address] [place] [address], [id number] Email: Angela Blake DO Emergency Provider Physician Referring Provider Specialty: Emergency Medicine Address: [address] [place] [address], [address] Email: [email or web address] Thuan Vazquez DO Admit Provider Physician Attending Provider Specialty: Internal Medicine Address: [address] [place] [address], [facility] Email: [email or web address] Past Medical History (Last Updated 04/18/23 @ 16:57 by Thuan Vazquez DO) CVA (cerebral vascular accident) (Medical) HLD (hyperlipidemia) (Medical) HTN (hypertension) (Medical) Type 2 diabetes mellitus (Medical) Speech-Language Pathology Swallow Evaluation DIRECTOR STUDENT UNION Clinical Swallow Evaluation Start: 04/18/23 16:57 Freq: Status: Active Protocol: Document 04/18/23 16:58 (Rec: 04/18/23 17:31 [id number]) Clinical Swallow Evaluation Session Time Visit Start Time 15:45 Visit Stop Time 16:45 Total Visit Minutes 60 Visit Information Visit Number 1 Referral Referring Provider hospitalist Reason for Referral dysphagia post cva Setting Assessment Location Acute Care Visit Type Note Type Initial evaluation Patient Information Identification Type Name,Date of History 62 y/o man with previous CVA 2018, admitted with slurred speech, and r sided weakness. Referred to ST for difficulty w swallowing for evaluation and tx as appropriate. Reported by Patient/Caregiver Other Symptoms Choking,Coughing,Difficulty swallowing liquids,Difficulty swallowing solids Comment Pt reported regular diet at home, some mild deficts mitigated by eating slower and chewing well. Pt reports even with small bites, that he has increased difficulty with intake, coughing on both solids and liquids. Baseline Feeding Method Independent in self-feeding The IDDSI Framework Protocol: IDDSI.1 Objective Assessment Mental Status Alert Dentition Within normal limits Lip Function Mild impairment Observation of Lips at Rest Symmetrical Pucker Right sided weakness/incoordination Lip Retraction Right sided weakness/incoordination Alternating Pucker/Lip Retraction Incoordination Tongue Function Mild impairment Observations of Tongue at Rest Deviates to the right Tongue Protrusion Within normal limits Tongue Lateralization Incoordination Observations of Hard/Soft Palate Reduced strength/ROM of soft palate elevation Respiratory Sufficiency Severe impairment Comment Patient demonstrated mild R side weakness, with slowed movement and incoordination. L eyebrow and L eyelid are lower than right, however tongue demonstrated mild initial deviation to the R, right side of face appears lu/puffy compared to the left. Pt reported tingling on R side of face earlier in day. Food and Liquid Trials Position During Assessment Upright (90 degrees) Liquids Trialed Thin (IDDSI 0) Solid Trials Purred (IDDSI 4),Regular ( IDDSI 7) Administration Type Cup single sip Oral Impairment Mildly impaired Oral Phase Comments reduced bolus control, mastication slow but with rotary chew, oral residue w solids (cracker). Initial bite of applesauce was verbalized as stuck in throat and when given water for a liquid wash, pt demonstrated an immediate cough response with regurgitation of the water through the nasal passage. Cough is very weak. Small sip of water was without difficulty, however, a larger mouthful resulted in apparent difficulty w swallow initiation, required multiple swallows to clear followed by a cough response. Subsequent small sips had no overt s/s of asp/pen. solids (cracker) demonstrated slowed mastication,and oral residue but no overt s/s of asp/pen. Pharyngeal Impairment Moderately impaired Fatigue/Endurance Mild fatigue Strategies Attempted Other Response/Comments patient benefitted from small bites/sips, hold then swallow w thin liquids. The IDDSI Framework Protocol: IDDSI.1 Findings Swallowing Function Oropharyngeal phase dysphagia Severity of Swallow Impairment Mildly-moderately impaired Contributing Factors to Swallow Reduced oral strength/ Impairment coordination/sensation, Impaired oral-pharyngeal transport,Delayed swallow initiation,Impaired airway protection Prognosis Good Based on Cognitive status,Family support Comment Clinical swallow evaluation today revealed oropharyngeal dysphagia characterized by reduced lip / tongue strength and coordination, s/p CVA, poor bolus control, difficulty w swallow initiation, and cough observed following thin liquids and puree solids. No pharyngeal difficulty noted w small bites of solids (cracker). Pt demonstrated significantly reduced breath support and ability to produce an effective cough. Pt verbalized globus sensation following puree trial, however feels it may also be related to post nasal drip. ST provided education on safe swallow strategies and importance of oral care before intake. Pt appears appropriate for soft and bite sized solids and thin liquids, with use of compensatory strategies. Recommend MBS tomorrow to characterize dysphagia and to gain a baseline of swallow function for appropriate diet textures and therapy. Impact on Safety and Functioning Risk for aspiration Recommendations Instrumental Assessment Yes Swallowing Treatment Yes Duration continued tx as an outpatient following MBS Recommended Solids Soft & Bite-sized (IDDSI 6) Recommended Liquids Thin (IDDSI 0) Other Recommendations fully upright w meals, oral care before all meals, small bites and sips, reduced rate Safety Precautions/Swallowing Remain upright (90 degrees) Recommendations during all oral intake,Small bites and sips when eating, Slow rate; swallow between bites Medication Recommendations As Tolerated Discharge Recommendations Home,Other (comment) Comments recommend outpatient ST for both swallow and speech rehab Education Patient/Caregiver Education Patient expressed understanding of evaluation, Patient expressed agreement with goals & treatment plans, Family/caregivers expressed understanding of evaluation, Family/caregivers expressed agreement with goals & treatment plans Goals Short-term Goals Patent will participate in an MBS in order to characterize dysphagia and to gain a baseline of swallow function for appropriate diet textures and therapy.
--- NOTE | 2023-04-18 17:32 | PC.NURSE ---
Patient arrived from ED this morning at 1130. NIHSS score of 2. Slightly slurred speech with slight numbness to R side of mouth. Per patient and patient's his gait is more unsteady than baseline. He is sat up at 90 degrees to eat lunch and observed patient with intense coughing. Patient's tray taken away and MD notified. Speech Therapy evaluation ordered. Patient is cleared for chopped diet with thin liquids and given strategies such as small bites cues to eat. PER CMM INSPECTOR notified MD for Modified Barium Swallow tomorrow. Diagnostic Imaging called RN to state an opening between 0830 tomorrow and 9 for barium swallow study. Bed alarm on, call light in reach, aspiration precautions, neuro assessment, frequent rounding. SBP this evening 160's-170's . MD notified and stated to allow for permissive hypertension until 180, and patient scheduled to start home BP meds this evening.
[2023-04-18] MEDS: INSULIN GLARGINE 100 UNIT/ML 3ML PEN 25 UNIT SUBCUT (21:22)
[2023-04-18] MEDS: METOPROLOL ER 50 MG TABLET PO (21:22)
[2023-04-18] MEDS: KCL 20 MEQ IN NS 1,000 ML 75 MEQ IV (23:12)
[2023-04-19 00:06] VITALS: BP 160/89; PULSE 89; RESP 18; TEMP 36.8; O2SAT 94
[2023-04-19 05:35] VITALS: BP 178/103; PULSE 91; RESP 17; TEMP 36.9; O2SAT 95
[2023-04-19 06:34] LABS: Blood Urea Nitrogen 12 mg/dL (9-20); Calcium 9.1 mg/dL (8.4-10.2); Carbon Dioxide 28 mmol/L (22-32); Chloride 101 mmol/L (98-107); Cholesterol 183 mg/dL (140-199); Estimated Glomerular Filt Rate > 60 mL/min (>60); Glucose 134 mg/dL (80-110); HDL Cholesterol 42 mg/dL (40-60); HEMOLYSIS 17 (0-50); LDL Cholesterol Calculated 103 mg/dL (<100); Magnesium 1.7 mg/dL (1.6-2.3); Potassium 3.7 mmol/L (3.4-5.1); Sodium 137 mmol/L (137-145); Triglycerides 191 mg/dL (35-150)
[2023-04-19 06:35] LABS: Add Manual Diff / Slide Review NO; Basophils Absolute Auto 0 /uL (0-100); Basophils Percent Auto 0.3 % (0-2); Eosinophils Absolute Auto 0 /uL (0-450); Eosinophils Percent Auto 0.4 % (2-4); Hematocrit 45.2 % (41-53); Hemoglobin 15.3 g/dL (13.5-17.5); Lymphocytes Absolute Auto 2500 /uL (1100-4500); Lymphocytes Percent Auto 20.6 % (25-40); Mean Corpuscular HGB Conc 33.8 % (30-36); Mean Corpuscular Hemoglobin 28.9 PG (26-34); Mean Corpuscular Volume 85.6 fL (80-100); Monocytes Absolute Auto 1100 /uL (0-900); Monocytes Percent Auto 8.9 % (3-14); Neutrophils Absolute Auto 8600 /uL (1500-7000); Neutrophils Percent Auto 69.8 % (50-75); Platelet Count 228 X10^3/uL (150-400); Red Blood Cell Count 5.28 X10^6/uL (4.5-5.9); Red Cell Distribution Width 14.4 % (11.6-14.8); White Blood Cell Count 12.2 X10^3/uL (4.5-11.0)
[2023-04-19 07:04] LABS: TSH w/ Reflex to FT4 1.93 uIU/mL (0.47-4.68)
--- NOTE | 2023-04-19 08:54 | CM.DANOTE ---
DCP: Case received, EMR reviewed and met with patient. Introduced self and role. was able to obtain information regarding patient's baseline activity status prior to admission. DCP assessment completed with information currently available. Patient is a 62 year old male who admitted yesterday morning to the care of the hospitalist team. PCP: Dr. Tracy. Payer: confirmed: [facility] Medicare. Patient came to the hospital via ambulance secondary to right sided weakness, slurring of speech. Notes indicate that patient has history of CVA in 2019. Notes also indicate that patient was up early in the morning watching TV, felt ok. When he was up using the restroom, he felt like his legs were going to give out. EMS was called. MRI noted subacute left pontine infarct. Patient will be having further diagnostics while here. He will also be working with the therapy team. Met with patient in his room. He is alert, confirmed that he resides in [place] with spouse. He does drive, stated that he is pretty independent, does have a walker at home if needed. Patient worked with P.T. yesterday, confirmed that he does use his FWW to get his mail. He also has history of neuropathy, right sided weakness from prior CVA. Wears brace for foot drop. P.T. notes also indicate that spouse and son can assist him when he goes home. Their recommendations are home with assist, and FWW. P: DCP to continue to follow for needs. Patient most likely should be able to go home when stable, have not yet ruled out home health services. Laverne Rahman RN/Dealer Compliance Representative Discharge Planning/Care Management CM Discharge Assessment Start: 04/19/23 08:52 Freq: Status: Active Protocol: Document 04/19/23 08:52 (Rec: 04/19/23 08:53 [id number]) Discharge Planning Assessment Assigned Computer Systems Designer Laverne Rahman RN/Dealer Compliance Representative Advance Directives? No History Provided By Patient,Medical Record Prior Living Arrangements House Household Members spouse,children Type of transporation used prior to Drives own vehicle admit Independent with ADL's Yes Is patient alert and oriented? Yes DME Already Rented / Owned FWW / Walker Comment Owns FWW, does not always use Barriers to Discharge No Comment He did pass P.T. Discharge Plan Home Transportation Arrangement Spouse Referrals Initiated Other Additional Comment Will check in again with P.T. today to see how he does. Whiteboard Updated in Patient Room with Yes name and ext. # of Computer Systems Designer Review Status In Process Next Review Type Continued Stay Review
[2023-04-19 09:00] VITALS: O2SAT 95
--- NOTE | 2023-04-19 09:00 | DI.RAD.S_ITS ---
PROCEDURE: FL BARIUM SWALLOW W SPEECH INDICATIONS: difficulty swallowing COMPARISON: None. TECHNIQUE: Examination was conducted in conjunction with speech pathology per standard protocol. In the lateral projection, filming was performed of the patient swallowing. AP projection filming may also be performed with patient swallowing. COMPARISON: FINDINGS: Deep laryngeal penetration and flash/transient aspiration observed with thin barium. No definite aspiration visualized with other consistencies. IMPRESSION: 1. Tracheal aspiration observed during the exam. 2. Please see the speech pathologist report for additional details. Dictated by: Homer Balbuena M.D. on 04/19/2023 at 9:21 Approved by: Homer Balbuena M.D. on 04/19/2023 at 9:22
[2023-04-19 09:59] VITALS: BP 178/103; PULSE 98
[2023-04-19] MEDS: LOSARTAN 50 MG TABLET PO (09:59)
[2023-04-19] MEDS: ASPIRIN EC 81 MG TABLET PO (10:04)
[2023-04-19 10:06] VITALS: BP 178/103; PULSE 91
[2023-04-19] MEDS: METOPROLOL ER 50 MG TABLET PO (10:06)
[2023-04-19] MEDS: ATORVASTATIN 20 MG TABLET 40 MG PO (10:07)
[2023-04-19] MEDS: CLOPIDOGREL 75 MG TABLET PO (10:07)
[2023-04-19] MEDS: ENOXAPARIN 40 MG/0.4 ML SYRINGE SUBCUT (10:07)
[2023-04-19] MEDS: INSULIN GLARGINE 100 UNIT/ML 3ML PEN 25 UNIT SUBCUT (10:08)
--- NOTE | 2023-04-19 10:45 | PT.IPTN ---
Current Diagnoses Cerebral infarction, unspecified (04/18/23) Physical Therapy Treatment Note M2 PT-IP Current Condition Start: 04/18/23 17:49 Freq: NEEDED Status: Active Protocol: Document 04/18/23 17:49 AB (Rec: 04/18/23 18:11 AB [id number]) Physical Therapy Current Condition Current Condition Evaluation Date 04/18/23 Treatment Diagnosis CVA; right sided weakness Onset Date 04/18/23 M3 PT-IP Subjective Start: 04/18/23 17:49 Freq: NEEDED Status: Active Protocol: Document 04/19/23 11:13 TS (Rec: 04/19/23 11:27 TS [id number]) Subjective Physical Therapy Visit Type Type Treatment Note Visit Start Time 10:45 Visit Stop Time 11:10 Total Visit Minutes 25 Physical Therapy Visit Comments Patient Comments Pt found resting in bed, conitnues to have some slurred speech, agreeable to PT. M4 PT-IP Mobility and Gait Start: 04/18/23 17:49 Freq: NEEDED Status: Active Protocol: Document 04/19/23 11:13 TS (Rec: 04/19/23 11:27 TS [id number]) PT-Bed Mobility Assessment Rolling Type of Rolling Bilateral Level of Assist Standby Assistance Supine to Sit Supine to Sit Minimal Assistance Scooting Scooting to Edge of Bed Minimal Assistance PT-Transfer Assessment Sit to and From Stand Sit to and from Stand Standby Assistance,Use of Upper Extremities Equipment Transfer Assistive Device Gait Belt,Front Wheeled Walker Comments Mobility Comments Pt performed logroll to R side SBA with use of handrails. Supine to sit Amy for uprighting trunk, cues were provided for BUE support, pt has decreased strength in RUE. He scooted to EOB with therapist holding down FWW and pt grasping front of FWW. Sit to stand w/FWW SBA, pt has good standing balance with no retroleaning. He ambulated ~ 150'SBA w/FWW, had no buckling or LOB. He performed stairs x3 SBA with use of B rails, cues were provided for ascending with strong side first. Pt was left back in room sitting EOB, discussing care with pharmacist. Gait Assessment Gait Gait Assistance Required: Standby Assistance Distance (Feet) 150 Assistive Devices Assistive Device Gait Belt Gait Deviations General Gait Pattern Decreased Stride Length, Decreased Feet Clearance Factors Limiting Gait Function Factors Limiting Gait Function Decreased Activity Tolerance, Decreased Sensation,Poor Balance,Poor Safety Awareness Comments Gait Comments See mobility comments. Stair Climbing Assessment Evaluation Level of Assist On Stairs Standby Assistance Devices Stair Climbing Assistive Devices Left Railing,Right Railing Technique/Endurance Stair Climbing Direction Ascend and Descend Stair Climbing Technique Step to Step Number of Steps Climbed 3 Stair Climbing Set # Repetitions (reps) 1 PT-Balance Assessment Sitting Balance and Reactions Static Sitting Balance Ability Normal Dynamic Sitting Balance Ability Good Standing Balance and Reactions Static Standing Balance Ability Good Dynamic Standing Balance Ability Fair M5 PT-IP Objective Assessments Start: 04/18/23 17:49 Freq: NEEDED Status: Active Protocol: Document 04/18/23 17:49 AB (Rec: 04/18/23 18:11 AB [id number]) Orientation Orientation/Cognition Level of Alertness Alert Orientation Name,Age,Birthday,Month,Date, Year,Day of Week,Place, Situation Language Function Ability No Deficits Noted Safety Awareness Understands Safety Issues Memory Description No Deficits Noted Comments Pt understand safety issues but reports not being receptive to recommendations in the past, and shows impulsivity when perform functional mobility tasks. Gross Range of Motion Upper Extremity ROM Assessment Within Functional Limits Lower Extremity ROM Assessment Within Functional Limits Strength Upper Extremity Strength Assessment Within Functional Limits Lower Extremity Strength Assessment Bilaterally Impaired Sensation Assessment Sensation Gross Sensation Right LE Impaired,Left LE Impaired Comments Sensation Comments Pt reprots neuropathy in BLE. M6 PT-IP Treatment Start: 04/18/23 17:49 Freq: NEEDED Status: Active Protocol: Document 04/19/23 11:13 TS (Rec: 04/19/23 11:27 TS [id number]) Physical Therapy Treatment Education Education Provided Precautions,Safety M7 PT-IP Assessment and Plan Start: 04/18/23 17:49 Freq: NEEDED Status: Active Protocol: Document 04/19/23 11:13 TS (Rec: 04/19/23 11:27 TS [id number]) PT Summary Assessment and Plan Potential Rehabilitation Potential Good Summary Impairments Strength,Balance,Coordination, Sensation,Bed Mobility, Transfers,Gait,Activity Tolerance Progress Towards Goals Progressing Toward Goals Assessment Summary Kenneth continues to have R sided weakness and slurred speech. He reports that his R sided weakness is mostly in his RUE, he required Amy for uprighting trunk to sit EOB due to that weakness. He had some difficulty scooting to EOB, required therapist hold down FWW for pt to grasp onto to pull himself forward. He performed sit to stand SBA with FWW and progressed his gait to ~150'SBA with FWW. He had good balance with use of FWW during gait and no buckling of knees. He continues to perform steps x3 SBA with B rails. PT continues to recommend home with assist and oupatient PT. Goals Bed Mobility Goal Independent Transfer Goal Independent Gait Goal Independent,Cane,Front Wheel Walker Gait Distance 200 Other Goals Pt to be able to complete transfers and ambulation with LRAD or no AD independently to show improved balance in order to return home safely. Pt to be able to ascend/ descend 3 steps with 1 hand rail independently to show improved strength to return home safely. Days to Meet Goals 10 Frequency of Treatment Frequency Of Treatment Once a Day Treatment Plan Physical Therapy Treatment Plan Bed Mobility Training,Transfer Training,Gait Training, Therapeutic Exercise,Balance Retraining,Post Op Education, Discharge Planning,Hot or Cold Pack,Neuromuscular Re-ed, Coordination Retraining,Manual Therapy Other Recommendations and Next Treatment Perform other functional Focus assessments and coordination tests as indicated. Recommendations To Nursing Amount of Assist Needed 1 Person Assist Discharge Recommendations PT Discharge Recommendations Home with Assistance, Outpatient PT Other Discharge Recommendations Outpatient PT is recommended to further improve the pt's deficits. Equipment Needed for Home Before FWW Discharge Transportation Needs at Discharge Private Vehicle,Wheelchair/ Cabulance
--- NOTE | 2023-04-19 10:45 | ST.SWALLOW ---
Visit Care Team Role Provider Type Thuan Euceda MD Primary Care Provider Non-Staff Specialty: Family Practice Address: [address] [place] [address], [id number] Email: Angela Blake DO Emergency Provider Physician Referring Provider Specialty: Emergency Medicine Address: [address] [place] [address], [address] Email: [email or web address] Thuan Vazquez DO Admit Provider Physician Attending Provider Specialty: Internal Medicine Address: [address] [place] [address], [address] Email: [email or web address] Modified Barium Swallow Study DIRECTOR OF MATH Modified Barium Swallow Study Start: 04/19/23 10:05 Freq: Status: Active Protocol: Document 04/19/23 10:07 (Rec: 04/19/23 10:42 [id number]) Modified Barium Swallow Study Total Time Visit Start Time 08:25 Visit Stop Time 09:05 Total Visit Minutes 40 Referral Referring Physician hospitalist Reason for Referral dysphagia post cva Setting Setting Acute Care Patient Information Patient History 62 y/o man with previous CVA 2019, admitted with slurred speech, and r sided weakness. Referred to for difficulty w swallowing for evaluation and tx as appropriate. Patient Positioning Position View Lat-A/P Imaging Lateral View Textures Administered Trials Presented Thin Liquid via Spoon (IDDSI 0 ),Thin Liquid via Cup (IDDSI 0 ),Thin Liquid via Straw (IDDSI 0),Puree (IDDSI 4),Regular ( IDDSI 7) Barium Tablet No The IDDSI Framework Protocol: IDDSI.1 Oral Impairment Source: The Modified Barium Swallow Impairment Profile (MBSImP??) Lip Closure No labial escape Tongue Control During Bolus Hold Posterior escape of greater than half of bolus Bolus Preparation/Mastication Slow prolonged chewing/mashing with complete re-collection Bolus Transport/Lingual Motion Repetitive/disorganized tongue motion Oral Residue Trace residue lining oral structures Location Palate,Tongue Initiation of Pharyngeal Swallow Bolus head at pyriforms Pharyngeal Impairment Source: The Modified Barium Swallow Impairment Profile (MBSImP??) Soft Palate Elevation No bolus between soft palate & pharyngeal wall Laryngeal Elevation Part.sup.move.thyroid cart/ part.approx.arytenoids to epiglot.petiole Anterior Hyoid Excursion Partial anterior movement Epiglottic Movement Complete inversion Laryngeal Vestibular Closure Incomplete; narrow column air/ contrast in laryngeal vestibule Pharyngeal Stripping Wave Present - complete Pharyngoesophageal Segment Opening Complete distention & complete duration; no obstruction of flow Tongue Base Retraction Narrow column of contrast/air betwn tongue base & post. pharyngeal wall Pharyngeal Residue Trace residue within/on pharyngeal structures Location Valleculae A/P View Textures Administered Trials Presented Thin Liquid via Straw (IDDSI 0 ) The IDDSI Framework Protocol: IDDSI.1 A/P View Observations Pharyngeal Contraction Unilateral bulging Esophageal Clearance Upright Position Complete clearance; esophageal coating Esophageal Function WFL Additional A-P Observations slight bulge left, mid pharynx . Possible weakness in muscle that could eventually develop into a Zenkers diverticulum. Clinical Impressions Dysphagia Type Oral,Pharyngeal Findings MBS revealed oropharyngeal dysphagia characterized by reduced bolus control, lingual discoordination with poor bolus control and poor AP transit, premature spillage with delayed swallow initiation and premature spillage to the pyriforms before swallow initiation, incomplete laryngeal closure with mild residue base of tongue and on soft palette, reduced hyolaryngeal excursion , reduced pharyngeal squeeze, with deep penetration to the VF with thin liquids, mitigated by small sips and pause before swallowing strategy. Pt appears to be handling deficits with compensatory strategies, however would benefit from ST as an outpatient to improve the oropharyngeal swallow function. Rehabilitation Potential Good Patient Appropriate for Therapy Yes Recommendations Diet Liquids Order Thin (IDDSI 0) Diet Order Soft & Bite-sized (IDDSI 6) Medication Recommendation As Tolerated Comments recommend outpatient ST for both swallow and speech rehab Aspiration Precautions Recommended Precautions Upright at 90 Degrees,Small Bites/Sips Treatment Plan Therapy Recommendations Outpatient Speech Therapy Therapy Strategy Recommendations Sitting Upright (90 deg),Small Bites and Sips Additional Strategies Recommended good oral care, pause/swallow, softer foods, slight chin tuck as needed, Placement Recommendation After Discharge Home
--- NOTE | 2023-04-19 10:46 | ST.IPTN ---
Visit Care Team Role Provider Type Thuan Euceda MD Primary Care Provider Non-Staff Address: [address] [place] [address], [address] Angela Blake DO Emergency Provider Physician Referring Provider Address: [address] [place] [address], [address] Thuan Vazquez DO Admit Provider Physician Attending Provider Address: [address] [place] [address], [address]
--- NOTE | 2023-04-19 10:46 | ST.IPDYTX ---
Visit Care Team Role Provider Type Thuan Euceda MD Primary Care Provider Non-Staff Specialty: Family Practice Address: [address] [place] [address], [id number] Email: Angela Blake DO Emergency Provider Physician Referring Provider Specialty: Emergency Medicine Address: [address] [place] [address], [id number] Email: [email or web address] DO Admit Provider Physician Attending Provider Specialty: Internal Medicine Address: [address] [place] [address], [id number] Email: [email or web address] COORDINATOR Dysphagia Treatment SALES RECRUITING COORDINATOR Dysphagia Treatment Start: 04/18/23 16:57 Freq: Status: Active Protocol: Document 04/19/23 10:07 (Rec: 04/19/23 10:42 [id number]) Dysphagia Treatment Session Time Visit Start Time 09:15 Visit Stop Time 10:00 Total Visit Minutes 45 Setting Assessment Location Acute Care Visit Type Note Type Treatment Note Treatment Treatment Activities review of video swallow, pt education of deficits observed , compensatory strategies and recommendations to increase safety w intake The IDDSI Framework Protocol: IDDSI.1 Assessment Patient Response to Treatment Good Rehab Potential Good Assessment of Improvement Pt verbalized understanding of findings and agreement to utilize strategies as recommended. ST recommended therapy as an outpatient for rehab of the swallow and speech should deficits not resolve w/in a week. Speech and breath support mildly improved today, although deficits remain present, and patient recovered well from previous CVA in 2019. Recommendations Recommendations Continue Current Diet Liquids Order Thin (IDDSI 0) Diet Order Soft & Bite-sized (IDDSI 6) Medication Recommendations As Tolerated Comments recommend outpatient ST for both swallow and speech rehab Aspiration Precautions Recommended Precautions Upright at 90 Degrees,Small Bites/Sips Additional Precautions pause before swallow of liquids, softer foods d/t lingual discoordination Treatment Plan Placement Recommendation after Discharge Home Appropriate for Continued Therapy Yes Therapy Recommendations ST as an outpatient for speech and swallow as needed.
--- NOTE | 2023-04-19 11:47 | OT.IP.EVAL ---
Current Diagnoses Cerebral infarction, unspecified (04/18/23) Past Medical History (Last Updated 04/18/23 @ 16:57 by Thuan Vazquez DO) CVA (cerebral vascular accident) HLD (hyperlipidemia) HTN (hypertension) Type 2 diabetes mellitus Occupational Therapy Inpatient Evaluation/Re-Eval M1 PT/OT-IP Prior Functional Status Start: 04/19/23 13:13 Freq: NEEDED Status: Active Protocol: Document 04/19/23 10:09 [facility] (Rec: 04/19/23 13:42 [facility] [id number]) Medical Review Prior Functional Status Medical History Reviewed Yes Communication Pt is able to express all needs. Mobility and Gait Pt reports he does not use AD for household mobility, but uses 4WW to get the mail. Activities of Daily Living and IADL's IND with ADLs, IADLs, and drives a little Prior Functional Level (Other details) hx of CVA in 2019 , hx of neuropathy and left foot drop (wears brace for foot drop) Social History Household Members spouse,children Living Arrangements House Number of Floors (Floors) One Floor Number of Stairs To Enter/Railing? 3 NICHO with hand rail on right side Home Environment Standard Height Toilet,Tub/ Shower Home Equipment Front Wheel Walker,Four Wheel Walker,Quad Cane,Raised Toilet Seat Without Armrests,Grab Bars In Shower Additional Social History Comment Pt reports his and son can assist him 24/7 if needed. The pt reports he owns a FWW but has loaned it to a friend currently. Pt states to get a FWW and not wanting to get one through the hospital. M2 OT-IP Current Condition Start: 04/19/23 13:13 Freq: Status: Active Protocol: Document 04/19/23 10:09 [facility] (Rec: 04/19/23 13:42 [facility] [id number]) Occupational Therapy Current Condition Current Condition Evaluation Date 04/19/23 Treatment Diagnosis subacute Left pontine infract Diagnosis Onset Date 04/18/23 M3 OT- IP Subjective and Pain Start: 04/19/23 13:13 Freq: Status: Active Protocol: Document 04/19/23 10:09 [facility] (Rec: 04/19/23 13:42 [facility] [id number]) OT- Subjective Occupational Therapy Visit Type Type Initial Evaluation Visit Start Time 11:47 Visit Stop Time 12:46 Total Visit Minutes 59 Occupational Therapy Visit Comments Patient Comments Pt agreed to work with OT Patient/Caregiver Goals TO go home OT Pain Assessment Pain When Pain Assessed At Rest Pain Present Pain Present Denied Pain M4 OT- IP ADL's Start: 04/19/23 13:13 Freq: Status: Active Protocol: Document 04/19/23 10:09 [facility] (Rec: 04/19/23 13:42 [facility] [id number]) OT VTM-Ezhj-Dalluid Comments OT Self-Feeding Comments Not at meal time. OT ADL-Grooming Comments OT Grooming Comments Not performed. OT ADL-Oral Care Comments Oral Care Comments Pt coughing on liquids. OT ADL-Dressing General Eval Upper Body Dressing Ability Independent Lower Body Dressing Ability Maximum Assistance Areas Needing Assistance Socks Comments OT Dressing Comments Pt needing assist with socks, however pt only wears slip on shoes at home. Pt needing to use his pant leg to help lift up both legs each in order to cross over to aidan his slip on shoes. OT ADL-Toileting Comments OT Toileting Comments Not performed. OT ADL-Bathing Comments OT Bathing Comments Pt would benefit from a shower chair or tub bench at home. M5 OT- IP IADL's Start: 04/19/23 13:13 Freq: Status: Active Protocol: Document 04/19/23 10:09 [facility] (Rec: 04/19/23 13:42 [facility] [id number]) OT-Instrumental Activities of Daily Living Deficits IADL Deficits Identified Deficits Home Safety Awareness Awareness of Need for Assistance at Home Good Awareness Ability to Problem Solve Emergency Able to Problem Solve Situations Medication Management Medication Management Caregiver Administers Money Management Money Management Comments It would be beneficial for his to provide supervision. Meal Preparation Meal Preparation Caregiver Provides Assist Cane Feeder Cane Feeder Caregiver Provides Assist Driving Driving Concerns Identified Regarding Safety Driving Comments Pt states he will not drive at this time and prior only drove a little. M6 OT- IP Functional Cognition Start: 04/19/23 13:13 Freq: Status: Active Protocol: Document 04/19/23 10:09 [facility] (Rec: 04/19/23 13:42 [facility] [id number]) Cognitive Factors Limiting Selfcare Function Cognitive Ability Level of Alertness Alert Patient Orientation Name,Place,Situation Attention Span Ability Capable of Focused Attention, Capable of Sustained Attention Ability to Follow Commands Able to Follow Multi-Step Commands Safety Awareness Underestimates Need for Assistance Cognitive Comments Cognitive Assessment Comments Pt does not recall which arm was weaker after his first CVA in 2019. Pt insistent that he will be okay at home and not wanting to have any therapy at this time and to touch base with his PCP and then decide. Pt scored 133 on [place] making Part B which implies impairment for visual attentions, speed of processing, mental flexibility, executive functioning, and task switching. Pt agreed that he will not drive. OT- Vision and Hearing OT- Hearing Assessment OT- Hearing Assessment WFL OT- Vision Assessment Visual Acuity WFL Visual Attentiveness WFL Occular Pursuits WFL Visual Convergence WFL Visual Viveros WFL Diplopia Absent M7 OT- IP Mobility and Balance Start: 04/19/23 13:13 Freq: Status: Active Protocol: Document 04/19/23 10:09 [facility] (Rec: 04/19/23 13:42 [facility] [id number]) OT- Bed Mobility Assessment Supine to Sit Supine to Sit Assist Contact Guard Assistance OT-Transfer Assessment Sit to and From Stand Sit to and from Stand Standby Assistance Transfers Transfer Ability Standby Assistance,Contact Guard Assistance Technique Transfer Destination Chair Transfer Technique Stand Step Pivot Devices Transfer Assistive Devices Gait Belt,4 Wheeled Walker Comments Mobility Comments Pt has a 4ww at home and therefore tired with pt. Pt needing occasional CGA for balance as 4ww rolling too fast for the pt. Pt was aware and to get a FWW. Pt needing increased time to get out of bed and noted lateral tilt to the right. OT- Balance Assessment Sitting Balance and Reactions Static Sitting Balance Ability Fair Dynamic Sitting Balance Ability Fair Standing Balance and Reactions Static Standing Balance Ability Fair Dynamic Standing Balance Ability Fair M8 OT- IP Objective Assessments Start: 04/19/23 13:13 Freq: Status: Active Protocol: Document 04/19/23 10:09 [facility] (Rec: 04/19/23 13:42 [facility] [id number]) OT Gross Range of Motion Upper Extremity Range of Motion Assessment Within Functional Limits OT Strength Upper Extremity Strength Assessment Bilaterally Impaired Comments Strength Comments RUE grossly 4-/5 and LUE 4/5 OT- Coordination Assessment Upper Extremity Finger to Nose Test Within Functional Limits Finger Tapping Test Within Functional Limits Comments Coordination Comments NOted decreased speed with right hand and smoothness of movement. 9 hole peg Lhand 33 sec and Rhand 55sec and pt is right hands.Pt not able to do thumb to finger opposition with right 4th and 5th digit. Noted Dupuytren right hand greater then left had and also noting decreased muscularture in his right hand which is also influenced his coordination and strength. OT-Muscle Tone Assessment Muscle Tone WNL Yes OT Sensation Assessment Comments Summary Comments Pt states has to think able it before coming up with the correct response. M9 OT- IP Assessment and Plan Start: 04/19/23 13:13 Freq: Status: Active Protocol: Document 04/19/23 10:09 [facility] (Rec: 04/19/23 13:42 [facility] [id number]) OT Summary Assessment and Plan Potential Rehabilitation Potential Good Analytic Complexity at Evaluation Moderate Summary OT Impairments Strength,Balance,Coordination, Functional Mobility,Dressing, Toileting,Bathing,Toilet Transfers,Shower Transfers Progress Towards Goals Progressing Toward Goals Assessment Summary Pt mod complexity and main barriers are decreased dynamic balance, coordination, strength, and needing increase time to process. Pt will benefit from use of fww versus 4ww at this time. Pt insists that he will get another FWW as he let someone borrow his fww. Pt has a 4ww currently that he had been using. Pt also noted weakness in RUE, pt states is new. Suggested pt have outpt OT to work on coordination and strengthening needs and able to give pt hand exercises to work on. Pt insists that he will be fine and wanting to hold off on OT until after he visit his PCP. Pt to go home with 24/7 assist. 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
--- NOTE | 2023-04-19 11:53 | PM.DS.1 ---
History of Present Illness History of Present Illness Date Patient Seen: 04/19/23 Time Patient Seen: 11:54 Chief complaint: Stroke Narrative: This is a 62 year old male with PMH of HTN, prior CVA (at [facility] in 2019), diabetes who presented with complaint of slurred speech. He reports his symptoms started yesterday evening but came and went. He was up watching television but noticed around 3 am it was a bit worse when he got up to use the restroom. He felt weak and off, and had back down when his legs felt weak. He was able to get back to sleep, and woke this morning with slurred speech and some R hand weakness. He denies numbness or tingling, vision changes. He has felt congested recently but no fever, sore throat, or sick contacts. He is supposed to be on clopidogrel from his prior stroke but has not been taking it recently. In the emergency room he was mildly hypertensive but the remainder of his vital signs were unremarkable. Laboratory evaluation was further unremarkable including basic chemistries, troponin, and urinalysis. Urine drug screen was negative. COVID-19 testing was negative. Initial head CT was negative for hemorrhage. CT angiogram of his head and neck showed no clinically significant stenosis. He was admitted for further management of presumed stroke. Given unclear last known normal, he was ineligible for tPA therapy. Discharge Providers Provider Date of admission: 04/18/23 10:45 Discharge Date: 04/19/23 Primary care physician: Thuan Euceda MD Consults: 04/18/23 11:41 Consult to Occupational Therapy Evaluate & Treat Comment: Physician Instructions: Evaluate and treat Consult to Physical Therapy Evaluate & Treat Comment: Physician Instructions: Evaluate and Treat 04/18/23 13:11 Consult to Speech Therapy Evaluate & Treat Comment: Physician Instructions: Evaluate and treat 04/19/23 06:56 Consult to Speech Therapy Evaluate & Treat Comment: Physician Instructions: Evaluate and treat Discharge provider: Thuan Vazquez DO Summary Hospital Course Discharge Diagnosis: 1. CVA 2. HTN 3. DM2 4. Obesity Hospital Course: This is a 62 year old male with PMH of obesity, HTN, DM2, and prior stroke admitted with R facial droop, slurred speech, and R hand weakness. No evidence of afib was noted on telemetry, though outpatient holter is recommended as his vessel imaging showed no significant stenosis. Prior TTE showed no PFO and was not repeated. MRI did confirm a left pontine infarct. He was assessed by speech, PT and OT with recommendations for outpatient therapies to continue on discharge. He did have a barium swallow which showed some aspiration, though speech therapy recommended a soft diet and thin liquids with behavioral modifications and continued outpatient speech and swallow evaluations. He was resumed on his home plavix which he had recently stopped taking. Aspirin will be added for 21 days due to NIH <5 on presentation for DAPT and to reduce stroke risk in the next 90 days. His blood pressures were controlled here on his home medications and no changes are recommended. A1c was >10, though glucose was controlled with his home therapy and no changes are recommended on discharge. Prompt PCP follow up is recommended in the next week to check on outpatient therapy status. The patient is at much higher risk for medical and surgical complications because of their obesity. This increases the difficulty and complexity of medical and surgical interventions and increases the chances of poor outcomes such as morbidity and mortality. Time Spent with Patient Time spent: Greater than 30 minutes Exam Vital Signs (past 8 hours): - 04/19/23 05:35 04/19/23 05:35 04/19/23 09:00 Temperature 98.4 F Pulse Rate 91 H Respiratory Rate 17 Blood Pressure 178/103 H Pulse Oximetry 95 95 95 Oxygen Delivery Method Room Air Room Air 04/19/23 09:59 04/19/23 10:06 Temperature Pulse Rate 98 H 91 H Respiratory Rate Blood Pressure 178/103 H 178/103 H Pulse Oximetry Oxygen Delivery Method Oxygen Delivery Method Room Air Oxygen Flow Rate 0 Narrative Exam Narrative: General:? Patient is well developed and well nourished, in no distress at this time. HEENT:? Normocephalic, atraumatic, extraocular muscles intact, oral pharynx is clear and mucous membranes are moist. Neck: supple and symmetric, trachea is midline, no cervical adenopathy. Negative for JVD Chest:? Normal AP diameter and contour without kyphoscoliosis, no tachypnea, equal chest rise bilaterally. Lungs:? CTA b/l no wheezing rhonchi or rales. Cardio:?RRR no m/r/g. Abdomen: S NT ND. Musculoskeletal:? Muscle strength and tone are equal within normal limits, no deformity. Extremities: No edema or joint effusions. No cyanosis or clubbing. Skin:? Pale,? Warm to touch,dry and intact without rashes, ulcerations or petechiae.? Neuro:? Alert and orientated x3,?slight R facial asymmetry with smiling though improved today, slurred speech compared to baseline also improving. R hand weakness compared to L has now seemingly resolved and +5/5 strength. Psych:? Patient has a well-kept appearance, appropriate affect, mental status attitude thought context and judgment are appropriate for age. Objective Labs 04/19/23 05:40 04/19/23 05:40 Labs: Laboratory Results - last 24 hr 04/19/23 04/19/23 04/19/23 05:40 05:40 05:40 WBC 12.2 H RBC 5.28 Hgb 15.3 Hct 45.2 MCV 85.6 MCH 28.9 MCHC 33.8 RDW 14.4 Plt Count 228 Neut % (Auto) 69.8 Lymph % (Auto) 20.6 L [place] % (Auto) 8.9 Eos % (Auto) 0.4 L Baso % (Auto) 0.3 Neut # (Auto) 8600 H Lymph # (Auto) 2500 [place] # (Auto) 1100 H Eos # (Auto) 0 Baso # (Auto) 0 Sodium 137 Potassium 3.7 Chloride 101 Carbon Dioxide 28 BUN 12 Creatinine 0.80 Estimated GFR > 60 BUN/Creatinine Ratio 15.0 Glucose 134 H Hemoglobin A1c 10.0 H Calcium 9.1 Magnesium 1.7 Triglycerides 191 H Cholesterol 183 LDL Cholesterol, Calc 103 H HDL Cholesterol 42 TSH 04/19/23 05:40 WBC RBC Hgb Hct MCV MCH MCHC RDW Plt Count Neut % (Auto) Lymph % (Auto) [place] % (Auto) Eos % (Auto) Baso % (Auto) Neut # (Auto) Lymph # (Auto) [place] # (Auto) Eos # (Auto) Baso # (Auto) Sodium Potassium Chloride Carbon Dioxide BUN Creatinine Estimated GFR BUN/Creatinine Ratio Glucose Hemoglobin A1c Calcium Magnesium Triglycerides Cholesterol LDL Cholesterol, Calc HDL Cholesterol TSH 1.93 [facility] Medical History (Updated 04/18/23 @ 16:57 by Thuan Vazquez DO) CVA (cerebral vascular accident) HLD (hyperlipidemia) HTN (hypertension) Type 2 diabetes mellitus Social History household members: spouse and children Smoking Status: Current every day smoker alcohol intake: never substance use type: does not use Discharge Plan Discharge Plan Patient Disposition: Home Provider Discharge Comment: You were admitted to the hospital with a stroke. You did well with therapies and outpatient therapy is recommended. Please follow up with your primary care provider for diabetes management, your A1c is 10%. The only additional medication is going to be a baby aspirin for 3 weeks after discharge. Your PCP may order a holter monitor to evaluate for possible atrial fibrillation as well. I have sent referrals to outpatient PT and speech therapy, though sometimes you will need to obtain this from your PCP office depending on insurance and clinic policies. Discharge orders & Medications Prescriptions: New aspirin 81 mg Tablet,Delayed Release (Dr/Ec) 81 mg PO DAILY 20 Days Qty: 20 0RF Continued losartan 50 mg Tablet 50 mg PO DAILY clopidogrel 75 mg Tablet 75 mg PO DAILY atorvastatin 40 mg Tablet 40 mg PO DAILY metoprolol succinate 50 mg Tablet Extended Release 24 Hr 50 mg PO BID insulin glargine [Lantus Solostar U-100 Insulin] 100 unit/mL (3 mL) Insulin Pen 25 unit SUBCUT BID Follow up/Referrals: Thuan Euceda MD [Primary Care Provider] - Other Ambulatory Orders: Referral to: (Schedule) Timeframe: 1 Week Location: Determined by Patient Ordered By: Thuan Vazquez Referral to: (Schedule) Timeframe: 1 Week Location: Determined by Patient Ordered By: Thuan Vazquez Diet/Activity/Treatments Diet: Diet as Tolerated Diet comment: Soft and bite sized diet, pause before swallowing liquids Visit Report/Discharge Packet Instructions: Brainstem Stroke, DI for Oropharyngeal Dysphagia Stand Alone Forms: Patient Portal/API, Stroke Signs & Symptoms Discharge Data Primary Care Provider: Thuan Euceda
[2023-04-19] MEDS: INSULIN LISPRO 100 UNIT/ML 3ML VIAL SUBCUT ×2 (12:31)
[2023-04-19 13:00] VITALS: BP 133/78; PULSE 90; RESP 18; TEMP 36.4; O2SAT 94; O2SAT 96
== END 2023-04-19 16:45 | disposition home or self-care (01) | DRG 65 ==
LOC: ED 08:48 → AC 10:47
PROVIDERS: Admitting Provider Internal Medicine; Emergency Provider Emergency Medicine; PCP Family Medicine; Referring Provider Emergency Medicine; Visit Provider Internal Medicine
DX: I63.89 Other cerebral infarction (principal); I69.351 Hemiplegia and hemiparesis following cerebral infarction affecting right dominant side; E11.9 Type 2 diabetes mellitus without complications; Z79.4 Long term (current) use of insulin; I10 Essential (primary) hypertension; R29.703 NIHSS score 3; E66.9 Obesity, unspecified; R47.81 Slurred speech; F17.200 Nicotine dependence, unspecified, uncomplicated
CPT/HCPCS: 36415; 70450; 70496; 70498; 70551; 74230; 80048; 80053; 80061; 80305; 80320; 81001; 81003; 81015; 82550; 82962; 83036; 83735; 84443; 84484; 85025; 85610; 85730; 87635; 92526; 92610; 92611; 93005; 97116; 97161; 97166; 97530; 99284; 99285; C9803; J1650; J1815; Q9967